=== PATIENT | male | born 1950 | race Caucasian/White ===

== ENCOUNTER 2018-06-07 10:01 | Inpatient (IN) | payer MEDICARE, OTHER ==
[~2018-06-07] VITALS: Ht 180.3 cm; Wt 127.7 kg
[2018-07-13] VITALS (10 sets, daily range): BP systolic 104–138; BP diastolic 59–85; PULSE 65–110; TEMP 97.4–97.9
[2018-07-13] MEDS ORDERED: BENAZEPRIL HCTZ PO (07:10)
[2018-07-13] MEDS ORDERED: MOBIC15 MG PO (07:11)
[2018-07-13] MEDS ORDERED: SYNTHROID0.05 MG/TA PO (07:11)
[2018-07-13] MEDS ORDERED: ZOCOR 40MG40 MG PO (07:12)
[2018-07-13] MEDS ORDERED: PRILOSEC 20MG20 MG PO (07:12)
--- NOTE | 2018-07-13 07:30 | NUR ---
prepped for surgery without incient, explanation given for going to and returning from surgery, verbalizes understanding
--- NOTE | 2018-07-13 08:53 | NUR ---
remains resting in bed and denies needs
--- NOTE | 2018-07-13 10:25 | NUR ---
to surgery per bed
--- NOTE | 2018-07-13 10:50 | NUR ---
First visit from the rate and cost analyst. No needs right now.
--- NOTE | 2018-07-13 15:50 | NUR ---
returned to room per bed from PACU, awake and alert, IVinfusing and placed on pump at 125ml/hr, O2 on at 2LNC and O2 sat 95%, SCDs and TRACI hose on bilaterally, aquacel dressing to right shoulder CD&I and ice on, has good sensation and movement to fingers on right hand, given water and toelrates well, provided pudding and if tolerates will instruct on ordering regular food, full assessment completed, see shift assessment for further info, denies other needs, at bedside
--- NOTE | 2018-07-13 16:00 | NUR ---
tolerated pudding well, instructed on ordering regular food and verbalizes understanding
--- NOTE | 2018-07-13 16:29 | NUR ---
SW met with patient and about discharge plan. Patient lives independently at home with his and plans to return there upon discharge. Patient reports he has his outpatient PT already scheduled. Patient's PCP is Dr Oglesby and he obtains prescriptions from [facility] in [place]. Patient reports no DME used and patient does not use home health services. Patient does have a DPOA in EMR. SW does not anticipate any discharge needs.
--- NOTE | 2018-07-13 16:30 | NUR ---
is reviewing menu with and will order something to eat soon, denies pain or needs
--- NOTE | 2018-07-13 17:04 | NUR ---
resting in bed watching TV, denies needs
--- NOTE | 2018-07-13 17:30 | NUR ---
sitting up in bed eating supper with assisting, tolerates well
--- NOTE | 2018-07-13 18:28 | NUR ---
in bed watching TV without c/os
--- NOTE | 2018-07-13 18:53 | NUR ---
Report to Monika PEREIRA.
--- NOTE | 2018-07-13 18:53 | NUR ---
bedside shift report given to KELLI Frank
--- NOTE | 2018-07-13 19:31 | NUR ---
Report received from KELLI Francis. Patient denies pain and states he is still numb to his shoulder. Denies tingling. Sensation has returned to his fingers. Aquacell in place. CDI. Fluids running to left wrist. SCD's and TRACI hose on. Patient denies any needs at this time.
[2018-07-14 00:57] VITALS: BP 116/78; PULSE 100; TEMP 98.4
[2018-07-14 04:11] VITALS: BP 108/70; PULSE 92; TEMP 97.9
--- NOTE | 2018-07-14 04:16 | NUR ---
Patient rested off and on throughout the night. Stated he was having trouble staying asleep. When assessed for pain, patient stated there was "a little bit there", but did not want pain medication as he "doesn't take pain medication often.". Will continue to monitor pain. Urinating well. Denies further needs.
[2018-07-14 05:56] LABS: HEMATOCRIT 44.6 % (42.0-52.0); HEMOGLOBIN 15.1 g/dl (13.5-18.0)
[2018-07-14] MEDS ORDERED: ASPI325T6 PO (07:31)
[2018-07-14] MEDS ORDERED: NORCO 325 MG-7.1 TAB PO (07:31)
--- NOTE | 2018-07-14 07:54 | NUR ---
REPORT FROM CELIA PEREIRA.
[2018-07-14 08:54] VITALS: BP 106/56; PULSE 95; TEMP 97.9
--- NOTE | 2018-07-14 11:07 | NUR ---
DISCHARGE INSTRUCTIONS REVIEWED WITH PT AND SPOUSE. QUESTIONS ANSWERED PT TAKEN OUT TO FRONT VIA WHEEL CHAIR.
== END 2018-07-14 10:15 | disposition home or self-care (01) | DRG 483 ==
LOC: JCC 07-13 06:24
PROVIDERS: ADMIT Orthopaedic Surgery
PROC: 0RRJ00Z Replacement of Right Shoulder Joint with Reverse Ball and Socket Synthetic Substitute, Open Approach (ICD-10-PCS; principal; 2018-07-13 11:00)
DX: M19.011 Primary osteoarthritis, right shoulder (principal); M75.111 Incomplete rotator cuff tear or rupture of right shoulder, not specified as traumatic; I10 Essential (primary) hypertension; Z87.891 Personal history of nicotine dependence; E03.9 Hypothyroidism, unspecified; Z68.39 Body mass index [BMI] 39.0-39.9, adult; E78.5 Hyperlipidemia, unspecified
CPT/HCPCS: A4314; A4619; A9284; C1713; C1776; J0690; J1100; J1885; J2250; J2270; J2370; J2405; J2704; J3010; J7050; J7120

== ENCOUNTER → 2018-07-02 | Outpatient (CLI) | payer MEDICARE, OTHER | LOC: ZCOL.LAB 12:14 | DX: Z01.812 Encounter for preprocedural laboratory examination (principal) ==

== ENCOUNTER 2019-02-14 10:55 | Inpatient (IN) | payer MEDICARE, OTHER ==
[~2019-02-14] VITALS: Ht 177.8 cm; Wt 123.1 kg
[~2019-02-14 10:55] MED LIST: ASPI325T6 PO; LOTENSIN HCT 201 TA1 PO; MOBIC15 MG PO; NORCO 325 MG-7.1 TAB PO; PRILOSEC 20MG20 MG PO; SYNTHROID0.05 MG/TA PO; ZOCOR 40MG40 MG PO
[2019-04-07] VITALS (10 sets, daily range): BP systolic 105–138; BP diastolic 51–95; PULSE 58–86; TEMP 97.1–98.5
[2019-04-07] MEDS ORDERED: TYLENOL 500MG500 MG (05:48)
[2019-04-07] MEDS ORDERED: VITAMINC1000TA PO (05:49)
[2019-04-07] MEDS ORDERED: FOLIC ACID0.4 MG PO (05:49)
[2019-04-07] MEDS ORDERED: FERROUS GL325 MG/TAB PO (05:49)
--- NOTE | 2019-04-07 11:40 | NUR ---
PATIENT IS A&O. VSS. DENIES PAIN. PATIENT IS CURRENTLY UNABLE TO MOVE FINGERS TO LUE DUE TO BLOCK. LTS DRESSING IS CD&I WITH AQUACEL AND ABDUCTOR SLING INPLACE. ICE PACK TO LUE. HEAD TO TOE WNL. IV FLUIDS INFUSING VIA PUMP INTO RIGHT HAND IV. LIQUIDS AT BEDSIDE. AT BEDSIDE. NO OTHER NEEDS.
--- NOTE | 2019-04-07 13:09 | NUR ---
Lathe Spotter met with patient and patient's Genet (ph#[phone]) to discuss discharge planning. Patient lives in [place] with his and sees Dr. Sky for primary care. Patient receives most medications by mail through [facility] but also occasionally uses [facility] in [place]. Patient does not use any DME at home and reports independence with ADLS. Patient reports he has Advance Directives completed. Patient plans to return home upon discharge. No additional concerns at this time.
--- NOTE | 2019-04-07 21:00 | NUR ---
Pt takes HS meds at this time. Denies need for pain meds, using ice pack for comfort. Has abductor sling on with good CSM of fingers to left hand. Nancy drsg D/I to shoulder. IVF capped at this time, site to right hand without redness or swelling.
--- NOTE | 2019-04-07 23:52 | NUR ---
Medicated with Tramadol 100mg po for left shoulder pain 11/23. SCD's removed per patient request.
[2019-04-08 00:45] VITALS: BP 121/72; PULSE 80; TEMP 98.5
[2019-04-08 04:06] VITALS: BP 143/77; PULSE 72; TEMP 98
--- NOTE | 2019-04-08 04:10 | NUR ---
Pt assisted to bathroom, voids and back to bed. Denies need for oral pain meds, replaced ice pack at this time. VSS.
--- NOTE | 2019-04-08 04:55 | NUR ---
Pt medicated with [place] 7.5mg 1 po now for left shoulder pain.
--- NOTE | 2019-04-08 06:12 | NUR ---
Pt reports pain 2/10 to left shoulder.
[2019-04-08] MEDS ORDERED: NORCO 325 MG-7.1 TAB PO (06:31)
[2019-04-08] MEDS ORDERED: ASPI325T6 PO (06:31)
[2019-04-08] MEDS ORDERED: SENNA-S 50 MG-81 TAB PO (06:32)
[2019-04-08] MEDS ORDERED: ULTRAM 50MG TAB50 MG PO (06:32)
[2019-04-08 07:26] LABS: HEMATOCRIT 43.5 % (42.0-52.0); HEMOGLOBIN 14.6 g/dl (13.5-18.0)
[2019-04-08 07:48] VITALS: BP 139/87; PULSE 79; TEMP 98.6
--- NOTE | 2019-04-08 08:00 | NUR ---
PATIENT IS A&O. VSS. RATES PAIN IN LUE AT 5-6 ON PAIN SCALE. GAVE PRN ROXICODONE, ONE TAB WITH AM MEDS. PATIENT PLANNING TO DISCHARGE TODAY. HEAD TO TOE WNL. AT BEDSIDE.
--- NOTE | 2019-04-08 10:30 | NUR ---
PATIENT DISCHARGING HOME VIA WC TO PERSONAL VEHICLE WITH . GAVE DISCHARGE INSTRUCTIONS, PRESCRIPTIONS & FOLLOW UP APTS. ANSWERED ALL QUESTIONS/CONCERNS. SENT HOME PERSONAL BELONGINGS. PATIENT DISCHARGED.
== END 2019-04-08 10:30 | disposition home or self-care (01) | DRG 483 ==
LOC: JCC 04-07 04:55
PROVIDERS: ADMIT Orthopaedic Surgery
PROC: 0LS40ZZ Reposition Left Upper Arm Tendon, Open Approach (ICD-10-PCS; 2019-04-07)
PROC: 0RRK00Z Replacement of Left Shoulder Joint with Reverse Ball and Socket Synthetic Substitute, Open Approach (ICD-10-PCS; principal; 2019-04-07 07:30)
DX: M19.012 Primary osteoarthritis, left shoulder (principal)
CPT/HCPCS: A4314; A4619; A9284; C1713; C1776; J0330; J0690; J2250; J2370; J2405; J2704; J2795; J3010; J7050; J7120

== ENCOUNTER 2021-03-21 06:03 | Day surgery (SDC) | payer MEDICARE ==
[~2021-03-21] VITALS: Ht 177.8 cm; Wt 127.3 kg
[~2021-03-21 06:03] MED LIST changes: +FERROUS GL325 MG/TAB PO; +FOLIC ACID0.4 MG PO; +SENNA-S 50 MG-81 TAB PO; +TYLENOL 500MG500 MG; +ULTRAM 50MG TAB50 MG PO; +VITAMINC1000TA PO
[2021-03-21 06:40] VITALS: BP 140/90; PULSE 67; TEMP 98.3
[2021-03-21] MEDS ORDERED: SYNTHROID0.05 MG/TA PO (07:00)
[2021-03-21] MEDS ORDERED: PRILOTC PO (07:01)
[2021-03-21] MEDS ORDERED: LOTENSIN HCT 201 TA1 PO (07:01)
[2021-03-21] MEDS ORDERED: ZOCOR 40MG40 MG PO (07:01)
[2021-03-21 08:05] VITALS: BP 144/82; PULSE 55; TEMP 97.4
--- NOTE | 2021-03-21 08:05 | NUR ---
Patient arrived back into [facility] from OR. Report received from Yefri Oswald and NALDO Mccullough. Patient doing well. Alert and awake. Denies pain or nausea. Requesting sprite and pudding and jello. at bedside. Vital signs stable.
[2021-03-21 08:20] VITALS: BP 147/84; PULSE 58
--- NOTE | 2021-03-21 08:20 | NUR ---
Patient tolerated food and drink well. No nausea or complaint of pain.
--- NOTE | 2021-03-21 08:30 | NUR ---
Went through discharge instructions with patient and . Questions answered. Patient and verbalized understanding to discharge instructions. IV removed without complications. Patient states he would like to use restroom.
[2021-03-21 08:35] VITALS: BP 132/75; PULSE 61
--- NOTE | 2021-03-21 08:50 | NUR ---
Patient dressed and went to restroom with assistance of . CMS on LUE is numb due to block, circulation intact with <3 cap refill. Patient escorted to patient entrace via wheelchair by KELLI Albright. Patient left in the care of his , Lisa.
== END 2021-03-21 08:55 | disposition home or self-care (01) ==
LOC: SDCO 06:03
DX: M65.332 Trigger finger, left middle finger (principal); G56.02 Carpal tunnel syndrome, left upper limb; M19.031 Primary osteoarthritis, right wrist; I10 Essential (primary) hypertension; E78.00 Pure hypercholesterolemia, unspecified; Z87.891 Personal history of nicotine dependence; Z79.890 Hormone replacement therapy; Z79.899 Other long term (current) drug therapy; Z79.891 Long term (current) use of opiate analgesic
CPT/HCPCS: J0690; J2704; J7120